=== PATIENT | female | born 1995 | race Caucasian/White ===

== ENCOUNTER 2017-09-24 11:49 | Emergency (ER) | payer BC ==
[~2017-09-24] VITALS: Ht 165.1 cm; Wt 57.8 kg
[2017-09-24 12:04] VITALS: TEMP 37.1; Ht 165.1 cm; Wt 57.8 kg
[2017-09-24] MEDS ORDERED: [UNRECOGNIZED DRUG - CODE] PO (12:14)
[2017-09-24] MEDS ORDERED: VNTHFA/IN INH (12:14)
[2017-09-24] MEDS ORDERED: VITB2100 PO (12:14)
[2017-09-24] MEDS ORDERED: METO-157 PO (12:14)
[2017-09-24] MEDS ORDERED: ONDA4TAB46 PO (12:14)
[2017-09-24] MEDS ORDERED: SODIUM CHLORIDE 0.9% 1000ML 1,000 ML IV STA (12:27)
[2017-09-24] MEDS ORDERED: DiphenhydrAMINE HCL 50 MG/ML VIAL IV STA (12:27)
[2017-09-24] MEDS ORDERED: PROCHLORPERAZINE 5 MG/ML 2 ML VIAL IV STA (12:27)
[2017-09-24] MEDS ORDERED: KETOROLAC TROMETHAMINE 30 MG/ML VIAL IV STA (12:29)
--- NOTE | 2017-09-24 12:31 | EMERGENCY ROOM VISIT NOTE ---
ED Visit Note First contact with patient: 12:11 CHIEF COMPLAINT: Migraine headache HISTORY OF PRESENT ILLNESS: This 22-year-old female patient presented to the emergency department ambulatory, with a female friend, with a gradual onset of a severe generalized headache with nausea/vomiting that started approximately 5 days ago. The patient states the migraine is similar to their typical migraines , but she believes it to be brought on by recent upper respiratory infection. The patient states last week, she was sick with a viral upper respiratory infection. Her congestion, runny nose, and sore throat have improved, but then she developed this migraine. She states she has had severe migraine with vomiting for approximately 2 days. She has had decreased appetite for 4-5 days , although she has been tolerating water. There has been associated photophobia , phonophobia, nausea and vomiting. The patient denies fever or chills recently , and there is no weakness or numbness of the extremities. There is no difficulty with speech or vision. No trauma to the head and no neck pain. The pain is severe, constant, and it is slowly increasing in severity. The patient rates the pain as throbbing and 8/10. The patient has taken OTC pain relievers without improvement in symptoms. This is not the worst headache of the life and is similar to previous migraines. Previous imaging studies of the brain have been normal. REVIEW OF SYSTEMS: A 10 system review of systems was performed with positives and pertinent negatives listed in the history of present illness. All other systems were reviewed and are negative. ALLERGIES: None MEDICATIONS: Zofran, Kytril PMH: Abdominal migraines, migraines SOCIAL HISTORY: The patient is a [employer] student. She lives locally with her roommate. She denies drug, alcohol, tobacco use. PHYSICAL EXAM: Vital Signs: Reviewed Nurse's notes, vital signs stable. GENERAL : Is a 22-year-old female, who appears in pain, but non toxic in appearance and in no acute distress. MENTAL STATUS: Alert, oriented, and coherent. HEENT: Normocephalic. PERRLA. EOMI. Nares patent without nuchal rigidity. Tympanic membranes pearly swanson without erythema or effusion bilaterally. Mucous membranes moist. NECK: Supple, no nuchal rigidity, nontender, no lymphadenopathy. HEART: Regular rhythm and normal rate without murmurs, ectopy, gallops, or rubs. LUNGS: Clear to auscultation bilaterally without wheezes, rales or rhonchi. No dullness to percussion. No accessory muscle use. No retractions. ABDOMEN: Soft, nontender on palpation. + Bowel sounds in all quadrants. SKIN: Normal. NEUROLOGICAL: Pupils are round, equal and react to light. The optic fundi are normal and the discs are flat. The patient moves all extremities well and the gait is normal. EMERGENCY DEPARTMENT COURSE: I examined the patient. She presents today complaining of migraine following upper respiratory infection. The patient was recently ill with a viral upper respiratory infection last week, and although those symptoms have improved, I suspect she became slightly dehydrated and was having difficulty eating a regular diet, thus triggering the migraine. She was treated here in the emergency department with IV fluids, Compazine, Toradol, and Benadryl. On reassessment, she was feeling significantly better after these medications. CBC and PRP did not reveal acute abnormal findings. The patient's mother did arrive to the emergency department with the patient, and did request a refill of Zofran, as the patient normally gets this medication for her abdominal migraines. Discharge instructions were reviewed, and the patient was discharged home in good condition. I attest that I have personally reviewed the patient's current medication list. Patient was found to have normal blood pressure on screening and does not require follow-up. The differential diagnosis includes influenza, upper respiratory infection, acute intracranial bleed, meningitis, encephalitis, mass or mass effect, sinusitis, infection, tumor, headache, temporal arteritis and carbon monoxide exposure, and migraine. DIAGNOSIS: Migraine headache, viral URI Current/Historical Medications Scheduled Granisetron HCl (Granisetron HCl), 1 MG PO DIRECTED Ondasetron Odt (Zofran Odt), 4 MG SL Q6H Riboflavin (Vitamin B-2), 100 MG PO DAILY Scheduled PRN Albuterol Hfa (Ventolin Hfa), 2-4 PUFFS INH Q6H PRN for Shortness of Breath Metoclopramide (Reglan), 5 MG PO Q6H PRN for Nausea Ondansetron Hcl (Zofran), 4 MG PO Q8 PRN for Nausea Allergies Coded Allergies: No Known Allergies (Unverified , 09/24/17) Vital Signs Date Time Temp Pulse Resp B/P (MAP) Pulse Ox O2 Delivery O2 Flow Rate FiO2 09/24/17 14:39 94 16 97/63 100 09/24/17 12:04 37.1 100 17 113/81 99 Room Air Laboratory Results 09/24/17 12:54 Red Blood Count 5.01, Mean Corpuscular Volume 89.0, Mean Corpuscular Hemoglobin 30.7, Mean Corpuscular Hemoglobin Concent 34.5, Mean Platelet Volume 9.8, Neutrophils (%) (Auto) 66.3, Lymphocytes (%) (Auto) 25.8, Monocytes (%) (Auto) 7.4, Eosinophils (%) (Auto) 0.3, Basophils (%) (Auto) 0.1, Neutrophils # (Auto) 4.47, Lymphocytes # (Auto) 1.74, Monocytes # (Auto) 0.50, Eosinophils # (Auto) 0.02, Basophils # (Auto) 0.01 09/24/17 12:54 Test 09/24/17 12:54 White Blood Count 6.75 K/uL (4.8-10.8) Red Blood Count 5.01 M/uL (4.2-5.4) Hemoglobin 15.4 g/dL (12.0-16.0) Hematocrit 44.6 % (37-47) Mean Corpuscular Volume 89.0 fL (80-100) Mean Corpuscular Hemoglobin 30.7 pg (25-34) Mean Corpuscular Hemoglobin Concent 34.5 g/dl (32-36) Platelet Count 236 K/uL (130-400) Mean Platelet Volume 9.8 fL (7.4-10.4) Neutrophils (%) (Auto) 66.3 % Lymphocytes (%) (Auto) 25.8 % Monocytes (%) (Auto) 7.4 % Eosinophils (%) (Auto) 0.3 % Basophils (%) (Auto) 0.1 % Neutrophils # (Auto) 4.47 K/uL (1.4-6.5) Lymphocytes # (Auto) 1.74 K/uL (1.2-3.4) Monocytes # (Auto) 0.50 K/uL (0.11-0.59) Eosinophils # (Auto) 0.02 K/uL (0-0.5) Basophils # (Auto) 0.01 K/uL (0-0.2) RDW Standard Deviation 40.5 fL (36.4-46.3) RDW Coefficient of Variation 12.6 % (11.5-14.5) Immature Granulocyte % (Auto) 0.1 % Immature Granulocyte # (Auto) 0.01 K/uL (0.00-0.02) Anion Gap 2.0 mmol/L (3-11) Est Creatinine Clear Calc Drug Dose 85.2 ml/min Estimated GFR () 100.5 Estimated GFR (Non- 86.7 BUN/Creatinine Ratio 6.4 (10-20) Calcium Level 9.5 mg/dl (8.5-10.1) Medications Administered Medications (Trade) Dose Ordered Sig/Jose F Route Start Time Stop Time Status Last Admin Dose Admin Sodium Chloride 1,000 ml @ 999 mls/hr Q1H1M STAT IV 09/24/17 12:27 09/24/17 13:27 DC 09/24/17 13:15 999 MLS/HR Prochlorperazine Edisylate (Compazine Inj) 10 mg NOW STAT IV 09/24/17 12:27 09/24/17 12:28 DC 09/24/17 13:10 10 MG Diphenhydramine HCl (Benadryl Inj) 50 mg NOW STAT IV 09/24/17 12:27 09/24/17 12:28 DC 09/24/17 13:10 50 MG Ketorolac Tromethamine (Toradol Inj) 30 mg NOW STAT IV 09/24/17 12:29 09/24/17 12:30 DC 09/24/17 13:10 30 MG Departure Information Impression Primary Impression: Migraine Additional Impression: Upper respiratory infection Dispostion Home / Self-Care Condition GOOD Prescriptions Ondasetron Odt (ZOFRAN ODT) 4 Mg Tab 4 MG SL Q6H for Nausea, #15 TAB Prov: Berkley Armendariz PA-C 09/24/17 Patient Instructions ED Headache Migraine, ED Upper Resp Infec No Abx Tx, My [facility] Additional Instructions DO NOT drive, drink alcohol, operate machinery, or perform dangerous activities today. You were given medications in the ER that can affect your ability to safely function or operate a vehicle. Rest today in a quiet, peaceful, dark environment and get a full 8-10 hrs of sleep tonight. Avoid loud noises, smoke/smoking, alcohol, bright lights, stress, or physical exertion today to minimize the chance the headache may return. Continue current medications as prescribed. You were given a prescription for Zofran to help you get through until you are able to fill your usual prescription. Ibuprofen(Motrin, Advil) may be used for fever or pain. Use 600mg every six hours as needed. Take with food. Avoid using more than 2400mg in a 24 hour period. Do not use 2400mg per day for more than three consecutive days without physician direction. Prolonged inappropriate use can lead to stomach upset or ulcers. (AND/OR) Acetaminophen(Tylenol) may be used for fever or pain. Use 1000mg every six hours as needed. Avoid using more than 3000mg in a 24 hour period. For your sore throat, you may use a 1:1 mixture of liquid Benadryl and liquid Maalox. Gargle and spit this mixture. It will help to soothe the throat and provide some relief. Drink warm tea with honey and lemon, as this will also help to soothe the throat. Gargle with salt water frequently. As discussed, you should take OTC Mucinex and/or Sudafed for your symptoms. Please do not exceed the recommended daily dosages. For congestion, you may use Flonase OTC. You may want to consider zinc, echinacea, and vitamin C to help boost your immunity. Please get plenty of rest and drink plenty of fluids. Please return or follow-up with your PCP in 1 week if you are not experiencing any improvement in your symptoms. Return to the emergency department for coughing up blood, difficulty breathing, chest pain, worsening symptoms, or for other concerns. Return to the ER for passing out, worsening headache, vision problems, neck stiffness/pain, fevers, vomiting, worsening of your condition, or as needed. School Instructions Return To School: 2 days Problem Qualifiers Primary Impression: Migraine Migraine type: without aura Status migrainosus presence: without status migrainosus Intractability: intractable Qualified Codes: G43.019 - Migraine without aura, intractable, without status migrainosus Additional Impression: Upper respiratory infection URI type: unspecified viral URI Qualified Codes: J06.9 - Acute upper respiratory infection, unspecified
[2017-09-24 13:04] LABS: BASO % 0.1 %; BASO ABS # 0.01 K/uL (0-0.2); EOS % 0.3 %; EOS ABS # 0.02 K/uL (0-0.5); HEMATOCRIT 44.6 % (37-47); HEMOGLOBIN 15.4 g/dL (12.0-16.0); IG# 0.01 K/uL (0.00-0.02); LYMPH % 25.8 %; LYMPH ABS # 1.74 K/uL (1.2-3.4); MEAN CORPUSCULAR HEMOGLOBIN 30.7 pg (25-34); MEAN CORPUSCULAR HGB CONC 34.5 g/dl (32-36); MEAN PLATELET VOLUME 9.8 fL (7.4-10.4); MONO % 7.4 %; NEUT % 66.3 %; NEUT ABS # 4.47 K/uL (1.4-6.5); PLATELET COUNT 236 K/uL (130-400); RED CELL DISTRIBUTION WIDTH CV 12.6 % (11.5-14.5); RED CELL DISTRIBUTION WIDTH SD 40.5 fL (36.4-46.3); WHITE BLOOD COUNT 6.75 K/uL (4.8-10.8)
[2017-09-24 13:21] LABS: CALCIUM 9.5 mg/dl (8.5-10.1); CREATININE 0.94 mg/dl (0.60-1.20); POTASSIUM 4.2 mmol/L (3.5-5.1)
[2017-09-24] MEDS ORDERED: ONDA4TAB10 SL (14:13)
[2017-09-24 14:39] VITALS: BP 97/63; PULSE 94; O2SAT 100
== END 2017-09-24 14:40 | disposition home or self-care (01) ==
LOC: C.EDB 11:52 → C.EDC 14:40
DX: G43.911 Migraine, unspecified, intractable, with status migrainosus (principal); J06.9 Acute upper respiratory infection, unspecified